=== PATIENT | female | born 1990 | race American Indian/Alaskan Native ===

== ENCOUNTER 2017-10-19 16:26 | Inpatient (IN) | payer MEDICAID ==
[2017-10-19] MEDS ORDERED: ZOFRAN IV PRN (16:31)
[2017-10-19] MEDS: D5LR 1,000 ML IV SCH (20:24)
[2017-10-19] MEDS: REGLAN IV SCH (20:24)
[2017-10-19] MEDS: PHENERGAN PR SCH (20:24)
[2017-10-19 21:05] LABS: Bacteria,Urine 1+ /HPF (Negative); Bilirubin,Urine NEG (Negative); Blood,Urine NEG (Negative); Ketones,Urine 80 mg/dL (Negative); Leukocyte Esterase,Urine NEG (Negative); Mucus,Urine FEW /HPF; Nitrite,Urine NEG (Negative); Protein,Urine <15 mg/dL mg/dL (Negative); Urobilinogen,Urine < 2.0 mg/dL (<2.0)
[2017-10-19 22:08] LABS: Anion Gap 20 mmol/L; BUN/Creatinine Ratio 13; Blood Urea Nitrogen 5 mg/dL (7-17); Carbon Dioxide 19 mmol/L (22-30); Chloride 101.7 mmol/L (98-107); Glucose 104 mg/dL (65-100); Potassium 3.4 mmol/L (3.6-5.0); Sodium 137 mmol/L (137-145)
[2017-10-20] MEDS: D5LR 1,000 ML IV SCH ×3 (01:11→22:43)
[2017-10-20] MEDS: PHENERGAN PR SCH ×3 (02:09→10:38)
[2017-10-20] MEDS: REGLAN IV SCH ×4 (02:09→22:40)
--- NOTE | 2017-10-20 09:26 | History and Physical Report ---
History of Present Illness Date of examination: 10/20/17 Date of admission: 10/19/17 17:02 Chief complaint: Persistent Nausea and Vomiting History of present illness: Patient was seen at [facility] yesterday with c/o persistent vomiting despite taking initially Phenergan and later Zofran as directed. She got no relief with Phenergan. Zofran helped for just a couple of days. She was evaluated at [facility] on 09/21/17 and given a prescription for Diclegis which did not help. She has been unable to keep anything down for the past week and is feeling very weak and unable to perform activities of daily living. 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 Family/Genetic History: stroke (maternal grandfather), cancer (lung cancer - maternal grandfather) Social history: single - Obstetrical History Expected Date of Delivery: 05/15/18 Actual Gestation: 10 Week(s) 3 Day(s) : 2 Para: 1 Hx # Term Pregnancies: 0 Number of Pregnancies: 0 Spontaneous Abortions: 0 Induced : 0 Number of Living Children: 1 Medications and Allergies Allergies Allergy/AdvReac Type Severity Reaction Status Date / Time Sulfa (Sulfonamide Allergy Unknown Verified 07/25/13 13:32 Antibiotics) Home Medications Medication Instructions Recorded Confirmed Last Taken Type Azithromycin [Zithromax] 500 pack PO QDAY #1 pack 07/25/13 Unknown Rx Fluticasone Propionate [Flonase] 16 gm NS DAILY #1 spray.susp 07/25/13 Unknown Rx Acetaminophen [Tylenol Extra 500 mg PO Q8H #30 tablet 09/21/17 Unknown Rx Strength] Doxylamine Succinate/Vit B6 2 each PO QHS #30 tablet. 09/21/17 Unknown Rx [John Gillespie 10-10 mg Tablet] Active Meds: Active Medications Dextrose/Lactated Ringer's (D5lr) 1,000 mls @ 500 mls/hr IV DIRECT OSEI Stop: 10/20/17 18:59 Last Admin: 10/20/17 01:11 Dose: 500 mls/hr Dextrose/Lactated Ringer's (D5lr) 1,000 mls @ 150 mls/hr IV DIRECT OSEI Last Admin: 10/20/17 04:19 Dose: 150 mls/hr Metoclopramide HCl (Reglan) 10 mg IV Q6H [facility] Last Admin: 10/20/17 02:09 Dose: 10 mg Multivitamins/Iron/Calcium ( Vitamin) 1 each PO QDAY [facility] Ondansetron HCl (Zofran) 4 mg IV Q6H PRN PRN Reason: N/V unrelieved by Reglan Promethazine HCl (Phenergan) 25 mg [place] Q6H [facility] Last Admin: 10/20/17 02:16 Dose: Not Given Review of Systems All systems: negative Constitutional: weight loss (6 lbs in 3 weeks), fatigue, weakness, poor appetite Gastrointestinal: nausea, vomiting, loss of appetite - Vital Signs Vital signs: Vital Signs Temp Pulse Resp BP Pulse Ox 99.0 F 79 20 114/65 100 10/19/17 17:00 10/19/17 17:00 10/19/17 17:00 10/19/17 17:00 10/19/17 17:00 Temp Pulse Resp BP Pulse Ox 98.6 F 83 16 91/53 100 10/20/17 06:54 10/20/17 06:54 10/20/17 06:54 10/20/17 06:54 10/19/17 17:00 - Physical Exam Breasts: Positive: deferred Cardiovascular: Regular rate, Normal S1, Normal S2 Lungs: Positive: Clear to auscultation, Normal air movement Extremities: Positive: normal Deep Tendon Reflex Grade: Normal +2 Results Result Diagrams: 10/19/17 21:09 Abnormal lab results 10/19/17 Range/Units 21:09 Potassium 3.4 L (3.6-5.0) mmol/L Carbon Dioxide 19 L (22-30) mmol/L BUN 5 L (7-17) mg/dL Creatinine 0.4 L (0.7-1.2) mg/dL Glucose 104 H (65-100) mg/dL All other labs normal. Assessment and Plan A: 27yo G 2 P 1 0 0 1 at 10 weeks 3 days by ultrasound Hyperemesis Gravidum P: Admit for 23-hours observation Antiemetic therapy, IV hydration and lab tests to assess electrolytes Discharge home if improving and able to tolerate regular diet and PO hydration
[2017-10-20] MEDS ORDERED: PRENATAL VITAMIN PO SCH (10:00)
[2017-10-21] MEDS: REGLAN IV SCH ×2 (06:04→12:15)
[2017-10-21 09:09] VITALS: BP 92/50
--- NOTE | 2017-10-21 11:58 | Progress Note ---
Assessment and Plan A: at 10 weeks, 4 days gestation. Nausea and vomiting resolved. P: Discharge patient home today. Rx Zofran ODT and Diclegis at [facility] in [place] (patient has Rx at pharmacy; just needs to pick it up after discharge). Advised patient in detail of discharge instructions. Advised patient to po hydrate and to eat a bland diet and also eat bananas, baked potatoes, and berries (dietary sources of potassium). Advised pt. of comfort measures for nausea and vomiting. Advised patient to follow up at [facility] on or 10/24/17. Warning signs discussed with pt. Pt. voiced understanding of all instructions. Subjective - Subjective Date of service: 10/21/17 Principal diagnosis: at 10 weeks, 4 days gestation; hyperemesis gravidarum Interval history: 27 year old female at 10 weeks, 4 days gestation admitted yesterday for IV hydration and treatment of nausea and vomiting. Patient states she has not had nausea since her admission yesterday and has not had any episodes of vomiting since being in the hospital. She denies diarrhea. She denies abdominal or pelvic pain. She denies urinary symptoms, lower back pain, or flank pain. She denies vaginal bleeding or discharge. Patient has kept bland fuids and liquids down orally. She wants to go home today. Patient reports: no new complaints, no loss of fluid, no vaginal bleeding, no contractions Objective - Vital Signs Vital Signs: Vital Signs - 12hr 10/21/17 10/21/17 04:42 09:08 Temperature 98.5 F 98.3 F Pulse Rate 90 92 H Respiratory 18 20 Rate Blood Pressure 100/65 92/50 [Left] O2 Sat by Pulse 98 Oximetry - Exam Cardiovascular: Regular rate Lungs: Clear to auscultation Abdomen: Present: normal appearance, soft. Absent: distention, tenderness, guarding, rigidity Extremities: normal - Labs Labs: Abnormal Labs 10/19/17 21:09 Potassium 3.4 L Carbon Dioxide 19 L BUN 5 L Creatinine 0.4 L Glucose 104 H
--- NOTE | 2017-10-21 12:25 | Discharge Summary ---
Providers - Providers Date of Admission: 10/20/17 10:15 Date of discharge: 10/21/17 Attending physician: LAUREN GUADALUPE MD None Primary care physician: Dr. Guadalupe Hospitalization Reason for admission: other (Nausea and vomiting of at 10 weeks, 4 days gestation) Discharge diagnosis: other ( at 10 weeks, 4 days gestation with nausea/ vomiting resolved) Pertinent studies: Labs Hospital course: Normal hospital course Condition at discharge: Good Disposition: DC-01 TO HOME OR SELFCARE - Discharge Diagnoses (1) First trimester Status: Acute (2) Hyperemesis gravidarum Status: Acute Plan - Provider Discharge Summary Activity: other (rest at home, comfort measures for nausea) Diet: other (bland diet, plenty of dietary sources of potassium, po hydrate) Additional instructions: Call your doctor immediately for: Persistent nausea or vomiting, weight loss, fever, chills, urinary symptoms, abdominal pain, or vaginal bleeding. - Follow up plan Follow up: LAUREN GUADALUPE MD [Staff Physician] - 10/23/17
== END 2017-10-21 13:10 | disposition home or self-care (01) | DRG 781 ==
LOC: 3A 16:26 → UNDOADMIN 16:26 → PREINTOOBSV 16:39 → OB 17:02 → OBSVTOIN 10-20 10:15
PROVIDERS: ADMIT Obstetrics & Gynecology; ATTEND Obstetrics & Gynecology
DX: O21.0 Mild hyperemesis gravidarum (principal); O99.511 Diseases of the respiratory system complicating pregnancy, first trimester; J45.909 Unspecified asthma, uncomplicated; Z3A.10 10 weeks gestation of pregnancy; Z82.3 Family history of stroke; Z80.1 Family history of malignant neoplasm of trachea, bronchus and lung; Z88.2 Allergy status to sulfonamides
CPT/HCPCS: 36415; 80048; 81001; G0378; G0379; J2405; J2765; J7121

== ENCOUNTER 2018-04-22 14:17 | Outpatient (CLI) | payer MEDICAID, OTHER ==
[2018-04-22] MEDS ORDERED: LACTATED RINGERS 500 ML IV ONE (14:41)
--- NOTE | 2018-04-23 14:30 | Ultrasound Report ---
FINAL REPORT PROCEDURE: Ultrasound biophysical profile without nonstress test. TECHNIQUE: Sonographic evaluation for breathing, movement, tone, and amniotic fluid volume was performed. CPT 80810 HISTORY: Evaluate well-being. COMPARISON: No prior studies are available for comparison. FINDINGS: Amniotic fluid volume: 2. breathin. movement: 2. tone: 2. Score: 8 of 8. IMPRESSION: Normal biophysical profile.
--- NOTE | 2018-04-23 14:31 | Ultrasound Report ---
FINAL REPORT PROCEDURE: Limited obstetrical ultrasound. TECHNIQUE: Real-time limited sonographic examination was performed for evaluation of size, position, heartbeat, fluid volume for each fetus with image documentation (1 or more fetuses). CPT 92319 HISTORY: Evaluate amniotic fluid volume and well-being. COMPARISON: Obstetrical ultrasound 09/21/2017. FINDINGS: There is a single viable fetus in cephalic presentation. Cardiac activity is documented at 141 beats per minute. The amniotic fluid volume measures 15.0 centimeters. The placenta is fundal in location. IMPRESSION: Amniotic fluid index of 15.0 centimeters. 2. EDC by US .
== END 2018-04-22 18:15 | disposition home or self-care (01) ==
LOC: TRG 14:17
PROVIDERS: ATTEND Obstetrics & Gynecology
DX: O47.03 False labor before 37 completed weeks of gestation, third trimester (principal); Z3A.36 36 weeks gestation of pregnancy
CPT/HCPCS: 59025; 76815; 76819

== ENCOUNTER 2018-05-02 12:41 | Inpatient (IN) | payer OTHER ==
[2018-05-02 15:52] LABS: Hematocrit 37.6 % (30.3-42.9); Hemoglobin 12.5 gm/dl (10.1-14.3); Mean Corpuscular HGB Conc 33 % (30-34); Mean Corpuscular Hemoglobin 32 pg (28-32); Mean Corpuscular Volume 97 fl (79-97); Platelet Count 247 K/mm3 (140-440); Red Blood Count 3.89 M/mm3 (3.65-5.03); Red Cell Distribution Width 13.6 % (13.2-15.2)
[2018-05-02] MEDS ORDERED: STADOL IV PRN (16:00)
[2018-05-02] MEDS ORDERED: SUBLIMAZE IV PRN (16:00)
[2018-05-02] MEDS ORDERED: XYLOCAINE 2% INFILTRATI NR (16:00)
[2018-05-02] MEDS ORDERED: PITOCin/NS 30 UNIT/500ML 30 UNITS/500 ML BAG IV SCH (16:00)
[2018-05-02] MEDS ORDERED: PITOCin/NS 20 UNIT/1000ML DRIP 20 UNITS/1,000 ML BAG IV SCH (16:00)
[2018-05-02] MEDS ORDERED: BRETHINE IVP PRN (16:00)
[2018-05-02] MEDS ORDERED: ePHEDrine SULFATE IV PRN (16:00)
[2018-05-02] MEDS ORDERED: BRETHINE SUB-Q PRN (16:00)
[2018-05-02] MEDS ORDERED: MINERAL OIL PO PRN ×2 (16:00→17:10)
[2018-05-02] MEDS: LACTATED RINGERS 1,000 ML IV SCH (16:34)
[2018-05-02] MEDS ORDERED: ZOFRAN IV PRN (17:10)
[2018-05-02] MEDS ORDERED: NARCAN 0.4 MG/1 ML IV PRN (17:10)
--- NOTE | 2018-05-02 17:26 | History and Physical Report ---
History of Present Illness Date of examination: 05/02/18 Date of admission: 05/02/18 12:41 Chief complaint: Presents for induction of labor due to IUGR per recommendation of APA. History of present illness: Early entry to care, 1st and 2nd trimesters complicated by Hyperemesis. Late 3rd trimester complicated by IUGR. 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 Family/Genetic History: stroke, cancer Social history: no significant social history, single - Obstetrical History Expected Date of Delivery: 05/15/18 Actual Gestation: 38 Week(s) 1 Day(s) : 2 Para: 1 Hx # Term Pregnancies: 1 Number of Living Children: 1 #1 Gender: Female year: [birth year] Birthweight: 4.252 kg Method of Delivery: Vaginal Gestational age at delivery: 39 Complications: none Medications and Allergies Allergies Allergy/AdvReac Type Severity Reaction Status Date / Time Sulfa (Sulfonamide Allergy Unknown Verified 07/25/13 13:32 Antibiotics) Active Meds: Active Medications Butorphanol Tartrate (Stadol) 2 mg IV Q2H PRN PRN Reason: Pain , Severe (7-10) Ephedrine Sulfate (Ephedrine Sulfate) 10 mg IV Q2M PRN PRN Reason: Hypotension Fentanyl (Sublimaze) 100 mcg IV Q2H PRN PRN Reason: Labor Pain Lactated Ringer's (Lactated Ringers) 1,000 mls @ 125 mls/hr IV DIRECT OSEI Last Admin: 05/02/18 16:34 Dose: 125 mls/hr Oxytocin/Sodium Chloride (Pitocin/Ns 20 Unit/1000ml Drip) 20 units in 1,000 mls @ 125 mls/hr IV DIRECT OSEI Oxytocin/Sodium Chloride (Pitocin/Ns 30 Unit/500ml) 30 units in 500 mls @ 2 mls /hr IV TITR OSEI; Protocol Oxytocin/Sodium Chloride (Pitocin/Ns 30 Unit/500ml) 30 units in 500 mls @ 1 mls /hr IV TITR OSEI; Protocol Lidocaine (Xylocaine 2%) 20 ml INFILTRATI ONCE NR Stop: 05/03/18 15:59 Mineral Oil (Mineral Oil) 30 ml PO QHS PRN PRN Reason: Constipation Mineral Oil (Mineral Oil) 30 ml PO QHS PRN PRN Reason: Constipation Naloxone HCl (Narcan 0.4 Mg/1 Ml) 0.1 mg IV Q2MIN PRN PRN Reason: Res Rate </= 8 or 02 SAT < 92% Ondansetron HCl (Zofran) 4 mg IV Q8H PRN PRN Reason: Nausea And Vomiting Terbutaline Sulfate (Brethine) 0.25 mg SUB-Q ONCE PRN PRN Reason: Hyperstimulation/Hypertonicity Terbutaline Sulfate (Brethine) 0.25 mg IVP ONCE PRN PRN Reason: Hyperstimulation/Hypertonicity Review of Systems All systems: negative - Vital Signs Vital signs: Vital Signs Pulse BP 91 H 99/59 05/02/18 13:47 05/02/18 13:47 Temp Pulse Resp BP Pulse Ox 98.8 F 108 H 18 109/58 100 05/02/18 13:54 05/02/18 16:58 05/02/18 13:54 05/02/18 16:58 05/02/18 13:54 - Physical Exam Breasts: Positive: normal Cardiovascular: Regular rate Lungs: Positive: Clear to auscultation, Normal air movement Abdomen: Positive: normal appearance, soft, normal bowel sounds Genitourinary (Female): Positive: normal external genitalia, normal perenium Uterus: Positive: enlarged Anus/Rectum: Positive: normal perianal skin - Obstetrical FHR: category 1 Uterine Contraction Monitor Mode: External Cervical Dilatation: 3 Cervical Effacement Percentage: 60 station: -3 Uterine Contraction Pattern: Irregular Uterine Tone Measurement Phase: Resting Uterine Contraction Intensity: Mild Results Result Diagrams: 05/02/18 15:20 All other labs normal. Assessment and Plan A: IUP @ 38 1/7 Weeks Category I Tracing IUGR GBS Negative P: Admit to L&D per Routine Orders Pitocin Induction
[2018-05-02] MEDS: PITOCin/NS 30 UNIT/500ML 30 UNITS/500 ML BAG IV SCH (20:15)
[2018-05-03] MEDS: PITOCin/NS 30 UNIT/500ML 30 UNITS/500 ML BAG IV SCH ×4 (03:38→06:04)
[2018-05-03] MEDS: LACTATED RINGERS 1,000 ML IV SCH ×2 (07:18→10:36)
--- NOTE | 2018-05-03 10:24 | Progress Note ---
Assessment and Plan A: IUP @ 38 2/7 Weeks Category I Tracing IUGR GBS Negative P: Continue Pitocin Induction AROM Internal x 1 Prepare for Epidural Anesthesia Subjective - Subjective Date of service: 05/03/18 Interval history: Early entry to care, 1st and 2nd trimesters complicated by Hyperemesis. Late 3rd trimester complicated by IUGR. Patient reports: movement normal, contractions Objective - Vital Signs Vital Signs: Vital Signs - 12hr 05/02/18 05/02/18 05/02/18 22:28 22:59 23:58 Temperature Pulse Rate 102 H 88 108 H Respiratory Rate Blood Pressure 102/62 104/59 92/53 Blood Pressure [Right] 05/03/18 05/03/18 05/03/18 00:29 00:59 01:00 Temperature 98.5 F Pulse Rate 103 H 93 H 93 H Respiratory 18 Rate Blood Pressure 91/55 87/52 Blood Pressure 87/52 [Right] 05/03/18 05/03/18 05/03/18 05:15 07:20 07:25 Temperature 98.3 F 98.2 F Pulse Rate 91 H 86 86 Respiratory 18 18 Rate Blood Pressure 107/55 103/63 Blood Pressure 107/55 103/63 [Right] 05/03/18 05/03/18 05/03/18 08:40 08:48 09:33 Temperature Pulse Rate 81 99 H 110 H Respiratory Rate Blood Pressure 98/59 100/60 87/54 Blood Pressure [Right] 05/03/18 05/03/18 05/03/18 09:41 09:48 10:03 Temperature Pulse Rate 96 H 96 H 105 H Respiratory Rate Blood Pressure 108/70 115/67 120/72 Blood Pressure [Right] 05/03/18 05/03/18 10:07 10:19 Temperature Pulse Rate 101 H Respiratory 20 Rate Blood Pressure 132/75 Blood Pressure [Right] - Exam Breasts: normal Cardiovascular: Regular rate Lungs: Clear to auscultation, Normal air movement Abdomen: Present: normal appearance, soft, normal bowel sounds Uterus: Present: normal, firm, fundal height above umbilicus FHR: category 1 Uterine Contraction Monitor Mode: Internal Cervical Dilatation: 3 (AROM of a large amount of clear fluid at 0935) Cervical Effacement Percentage: 60 station: -2 Uterine Contraction Pattern: Irregular Uterine Tone Measurement Phase: Resting Uterine Contraction Intensity: Moderate Extremities: normal - Labs Labs: Laboratory Results - last 24 hr 05/02/18 05/02/18 15:20 15:20 WBC 6.5 RBC 3.89 Hgb 12.5 Hct 37.6 MCV 97 MCH 32 MCHC 33 RDW 13.6 Plt Count 247 Blood Type O POSITIVE Antibody Screen Negative
[2018-05-03] MEDS ORDERED: NARCAN 2 MG/2 ML IV PRN (11:37)
[2018-05-03] MEDS ORDERED: ePHEDrine SULFATE IV PRN (11:37)
--- NOTE | 2018-05-03 11:37 | Anesthesia Consultation ---
Anesthesia Consult and Med Hx Date of service: 05/03/18 - Airway Anesthetic Teeth Evaluation: Good ROM Head & Neck: Adequate Mental/Hyoid Distance: Adequate - Pre-Operative Health Status ASA Pre-Surgery Classification: ASA2 Proposed Anesthetic Plan: Epidural, Spinal - Pulmonary Hx Asthma: Yes (albuterol inhaler) COPD: No Hx Pneumonia: No - Cardiovascular System Hx Hypertension: No - Central Nervous System Hx Seizures: No Hx Psychiatric Problems: No - Endocrine Hx Renal Disease: No Hx End Stage Renal Disease: No Hx Hypothyroidism: No Hx Hyperthyroidism: No - Hematic Hx Anemia: No Hx Sickle Cell Disease: No - Other Systems Hx Alcohol Use: No
[2018-05-03] MEDS ORDERED: fentaNYL-BUPIV 2 MCG/ML-0.125% 200 MCG/100 ML BAG EPIDURAL SCH (12:00)
[2018-05-03] MEDS ORDERED: PHENERGAN PR PRN (13:41)
[2018-05-03] MEDS ORDERED: BENADRYL PO PRN (13:41)
--- NOTE | 2018-05-03 13:51 | Procedure Note ---
OB Delivery Note - Delivery Date of Delivery: 05/03/18 Surgeon: SACHA SANCHES Estimated blood loss: other (150) - Vaginal Delivery presentation: vertex Delivery position: OA Delivery induction: oxytocin Delivery augmentation: rupture of membranes, pitocin Delivery monitor: external FHT, internal uterine Route of delivery: Delivery placenta: spontaneous Delivery cord: nuchal cord, 3 umbilical vessels Episiotomy: none Delivery laceration: none Anesthesia: epidural Delivery comments: of a live 5'11 female over a intact perineum under epidural anesthesia with Apgars of 8 and 9 at 1324 on 05/03/2018. Nuchal cord x 1 manually reduced on the perineum prior to delivery of the anterior shoulder. Infant directly to maternal abd/chest, skin to skin contact. Spontaneous delivery of placenta complete and intact with Jo side presenting at 1333. Fundus is firm and midline located 4 below the U. Lochia is scant. Delayed cord clamping and cutting; cord cut by maternal grandmother. Cord blood collected. Placenta discarded. - Infant A at 1 minute: 8 at 5 minutes: 9 Gender: Female (5'11)
[2018-05-03] MEDS ORDERED: SODIUM CHLORIDE FLUSH SYRINGE 10 ML IV NR (14:00)
[2018-05-03] MEDS: MOTRIN PO SCH ×2 (18:10→20:00)
[2018-05-03] MEDS: NORCO 5/325 PO PRN (18:32)
[2018-05-04] MEDS: NORCO 5/325 PO PRN ×2 (00:23→11:50)
[2018-05-04] MEDS: MOTRIN PO SCH ×2 (00:23→11:50)
[2018-05-04 07:04] LABS: Hematocrit 32.1 % (30.3-42.9); Hemoglobin 10.8 gm/dl (10.1-14.3)
--- NOTE | 2018-05-04 09:25 | Progress Note ---
Assessment and Plan - Patient Problems (1) Status post normal vaginal delivery Current Visit: Yes Status: Acute Plan to address problem: PPD 1 - stable Continue routine PP orders Discharge to home 05/05/18 Follow-up at [facility] in 6 weeks for PP exam Subjective - Subjective Date of service: 05/04/18 Principal diagnosis: s/p Normal Spontaneous Vaginal Delivery, PPD 1 Patient reports: appetite normal, voiding normally, pain well controlled, ambulating normally, no bowel movement : doing well, nursing well Objective - Vital Signs Latest vital signs: Vital Signs Temp Pulse Resp BP BP Pulse Ox 05/04/18 01:45 98.7 F 82 20 96/56 99 05/03/18 21:16 98.4 F 89 20 105/62 99 05/03/18 18:10 20 05/03/18 17:30 99.3 F 84 20 106/62 05/03/18 15:07 78 110/62 05/03/18 14:52 93 H 104/58 05/03/18 14:38 92 H 103/65 05/03/18 14:07 98 H 110/59 05/03/18 13:52 104 H 116/56 05/03/18 13:37 115 H 106/59 05/03/18 13:22 103 H 116/67 05/03/18 13:09 104 H 97 05/03/18 13:08 81 114/69 05/03/18 13:04 117 H 99 05/03/18 12:59 96 H 100 05/03/18 12:54 117 H 99 05/03/18 12:53 87 116/59 05/03/18 12:49 121 H 100 05/03/18 12:44 117 H 100 05/03/18 12:39 108 H 99 05/03/18 12:38 96 H 109/71 05/03/18 12:36 96 H 108/72 05/03/18 12:34 100 H 99 05/03/18 12:29 90 99 05/03/18 12:24 124 H 98 05/03/18 12:22 94 H 107/68 05/03/18 12:19 100 H 96 05/03/18 12:14 101 H 100 05/03/18 12:09 85 96 05/03/18 12:08 82 105/68 05/03/18 12:04 81 99 05/03/18 12:02 105 H 76 L 05/03/18 11:59 81 100 05/03/18 11:54 98 H 98 05/03/18 11:50 93 H 113/60 05/03/18 11:49 120 H 97 05/03/18 11:47 88 101/59 05/03/18 11:44 95 H 122/69 98 05/03/18 11:41 102 H 124/64 05/03/18 11:39 83 95 05/03/18 11:38 85 123/62 05/03/18 11:35 96 H 107/61 05/03/18 11:34 92 H 97 05/03/18 11:32 99 H 101/59 05/03/18 11:29 107 H 100 05/03/18 11:28 93 H 100/58 05/03/18 11:24 105 H 94 05/03/18 11:19 116 H 86 05/03/18 11:18 101 H 95/50 05/03/18 11:14 99 H 97 05/03/18 11:12 85 94 05/03/18 11:09 92 H 98 05/03/18 11:04 103 H 97 05/03/18 11:03 93 H 102/55 05/03/18 10:59 110 H 99 05/03/18 10:54 107 H 100 05/03/18 10:53 44 L 69 L 05/03/18 10:49 103 H 131/62 05/03/18 10:37 20 05/03/18 10:34 110 H 130/79 05/03/18 10:19 101 H 132/75 05/03/18 10:07 20 05/03/18 10:03 105 H 120/72 05/03/18 09:48 96 H 115/67 05/03/18 09:41 96 H 108/70 05/03/18 09:33 110 H 87/54 Intake and Output 05/03/18 05/04/18 05/04/18 23:59 07:59 15:59 Output Total 450 450 Balance -450 -450 Output: Urine 450 450 Void 450 450 Other: Total, Output Amount 450 450 # Voids Void 900 - Exam Vulva: both: normal Uterus: Present: normal, firm, fundal height at umbilicus Extremities: Present: normal
--- NOTE | 2018-05-04 09:26 | Discharge Summary ---
Providers - Providers Date of Admission: 05/02/18 12:41 Date of discharge: 05/05/18 Attending physician: LAUREN GUADALUPE MD Primary care physician: LAUREN GUADALUPE MD Hospitalization Reason for admission: induction of labor, IUP at term Delivery: Episiotomy: none Laceration: none complications: none Discharge diagnosis: IUP at term delivered [place] baby: female Hospital course: Uncomplicated Condition at discharge: Stable Disposition: DC-01 TO HOME OR SELFCARE - Discharge Diagnoses (1) Status post normal vaginal delivery Status: Acute Plan - Provider Discharge Summary Activity: routine, no sex for 6 weeks, no heavy lifting 4 weeks, no strenuous exercise Diet: routine Instructions: routine Additional instructions: [] Smoking cessation referral if applicable(refer to patient education folder for contact #) [] Refer to [facility] Booklet Call your doctor immediately for: * Fever > 100.5 * Heavy vaginal bleeding ( >1 pad per hour) * Severe persistent headache * Shortness of breath * Reddened, hot, painful area to leg or breast * Drainage or odor from incision. * Keep incision clean and dry at all times and follow doctor's instructions regarding bathing/showering - Follow up plan Follow up: LAUREN GUADALUPE MD [Primary Care Provider] - 6 Weeks (Follow-up at [facility] in 6 weeks for exam)
[2018-05-04] MEDS: PRENATAL VITAMIN PO SCH (09:38)
[2018-05-05] MEDS: MOTRIN PO SCH ×4 (00:13→14:00)
[2018-05-05] MEDS: NORCO 5/325 PO PRN (00:13)
[2018-05-05 08:19] VITALS: BP 89/57
[2018-05-05] MEDS: PRENATAL VITAMIN PO SCH (10:46)
== END 2018-05-05 14:25 | disposition home or self-care (01) | DRG 775 ==
LOC: LD 12:41 → OB 05-03 17:00
PROVIDERS: ADMIT Obstetrics & Gynecology; ATTEND Obstetrics & Gynecology
PROC: 10E0XZZ Delivery of Products of Conception, External Approach (ICD-10-PCS; principal; 2018-05-03)
PROC: 10907ZC Drainage of Amniotic Fluid, Therapeutic from Products of Conception, Via Natural or Artificial Opening (ICD-10-PCS; 2018-05-03)
PROC: 3E033VJ Introduction of Other Hormone into Peripheral Vein, Percutaneous Approach (ICD-10-PCS; 2018-05-03)
PROC: 3E0R3BZ Introduction of Anesthetic Agent into Spinal Canal, Percutaneous Approach (ICD-10-PCS; 2018-05-03)
PROC: 00HU33Z Insertion of Infusion Device into Spinal Canal, Percutaneous Approach (ICD-10-PCS; 2018-05-03)
DX: O36.5930 Maternal care for other known or suspected poor fetal growth, third trimester, not applicable or unspecified (principal); O69.81X0 Labor and delivery complicated by cord around neck, without compression, not applicable or unspecified; Z3A.38 38 weeks gestation of pregnancy; Z37.0 Single live birth; O99.52 Diseases of the respiratory system complicating childbirth; J45.909 Unspecified asthma, uncomplicated; Z88.2 Allergy status to sulfonamides
CPT/HCPCS: 36415; 85014; 85018; 85027; 86592; 86850; 86900; 86901; J2590; J3010; J7120